=== PATIENT | female | born 1940 | race Caucasian/White ===

== ENCOUNTER → 2017-09-13 | Outpatient (CLI) | payer OTHER ==
[~2017-09-13] MED LIST: ASPI-650 PO; ASPIRIN PO; BISTOLIC PO; BUDE10.2 INH; CEPH-376 PO; CRESTOR PO; CYCL5TAB PO; DIABETES MED PO; EMPA10TA PO; HYDR-882 PO; INHALER PO; LISI-170 PO; LISINOPRIL PO; NEBI10TA3 PO; OXYM30SP81 NAS; ROSU20TA PO; SENN-31 PO
== END | disposition home or self-care (01) ==
LOC: CFH 16:08
PROVIDERS: ATTEND Family Medicine
DX: J20.9 Acute bronchitis, unspecified (principal)
CPT/HCPCS: 71046

== ENCOUNTER 2018-03-24 10:02 | Day surgery (SDC) | payer OTHER ==
[~2018-03-24] VITALS: Ht 170.2 cm; Wt 74.5 kg
[~2018-03-24 10:02] MED LIST changes: +APIX2.5T PO; +APIX5TAB PO; +METO50TA82 PO; +SITA25TA PO
[2018-03-24 11:30] VITALS: BP 125/90
[2018-03-24] MEDS ORDERED: TIOT18CA INH (11:44)
[2018-03-24] MEDS ORDERED: CHOL2000 PO (11:44)
[2018-03-24] MEDS ORDERED: MULT-6 PO (11:44)
[2018-03-24] MEDS ORDERED: SITA100T PO (11:44)
[2018-03-24] MEDS ORDERED: FLUT9.9S NAS (11:44)
[2018-03-24] MEDS ORDERED: LOSA25TA5 PO (11:45)
[2018-03-24] MEDS ORDERED: FENTANYL PF 100 MCG/2ML ONE ×2 (12:05)
[2018-03-24] MEDS ORDERED: MIDAZOLAM 1 MG/ML, 5ML ONE (12:05)
[2018-03-24 13:24] LABS: ANION GAP 10 mmol/L (5-15); CALCIUM 9.9 mg/dL (8.5-10.1); CHLORIDE 97 mmol/L (98-107); CREATININE 1.11 mg/dL (0.55-1.02)
== END 2018-03-24 13:54 | disposition home or self-care (01) ==
LOC: CACL 10:02
PROVIDERS: ATTEND Internal Medicine Cardiovascular Disease
DX: I48.0 Paroxysmal atrial fibrillation (principal); I10 Essential (primary) hypertension; E11.9 Type 2 diabetes mellitus without complications; E78.2 Mixed hyperlipidemia; Z87.891 Personal history of nicotine dependence; Z72.89 Other problems related to lifestyle; Z98.890 Other specified postprocedural states; Z79.899 Other long term (current) drug therapy
CPT/HCPCS: 36415; 80048; 92960; J2250; J3010

== ENCOUNTER → 2019-06-29 | Outpatient (CLI) | payer OTHER ==
[~2019-06-29] MED LIST changes: +CHOL2000 PO; +FLUT9.9S NAS; +HYDR-3653 PO; -HYDR-882 PO; +LOSA25TA25 PO; +MULT-6 PO; -ROSU20TA PO; +ROSU20TA2 PO; +SITA100T PO; +TIOT18CA INH
== END | disposition home or self-care (01) ==
LOC: CFH 08:59
PROVIDERS: ATTEND Nurse Practitioner
DX: J43.2 Centrilobular emphysema (principal); J84.10 Pulmonary fibrosis, unspecified; J44.9 Chronic obstructive pulmonary disease, unspecified; E11.9 Type 2 diabetes mellitus without complications; Z87.891 Personal history of nicotine dependence
CPT/HCPCS: 71250